=== PATIENT | female | born 1995 | race Caucasian/White ===

== ENCOUNTER 2018-03-30 20:23 | Emergency (ER) | payer OTHER, SELFPAY ==
[2018-03-30 20:48] VITALS: BP 129/89; PULSE 100; RESP 16; TEMP 36.7; O2SAT 99
--- NOTE | 2018-03-30 20:57 | DI.RAD_ITS ---
SYMPTOMS/DIAGNOSIS: FALL RIGHT ANKLE: No fracture or ankle mortise widening is seen. IMPRESSION: Negative right ankle.
--- NOTE | 2018-03-30 21:35 | W.ED.GENAD ---
Discharge Plan Disposition Patient Disposition: HOME Condition: Stable Discharge Details Chief Complaint: Orthopedic Clinical Impression: Right ankle sprain Primary Care Provider: Raghavendra Patton ED Provider: Tejas Yusuf Home Meds and New Rx's Prescriptions: No Action amoxicillin 500 mg capsule 500 mg PO BID Qty: 20 RF: 0 sucralfate [Carafate] 0.1 GM/ML suspension 1 gm PO AC & HS Qty: 500 RF: 0 famotidine 40 MG tablet 40 mg PO BID Qty: 30 RF: 0 Discharge Instructions Instructions: Ankle Sprain (ED), RICE Therapy (ED) Additional Instructions: You may continue to use kaod-jqa-hpjddfk acetaminophen or Motrin as needed for pain control. Please wear the provided brace over the next 2-4 weeks and over the next 2-3 days you may use crutches as needed but advance activity as tolerated by pain and discomfort. If not improving over the next 2 weeks please follow-up with orthopedist for reassessment Stand Alone Forms: Work Release Referrals: Curtis Fernandez MD [ [facility] STAFF PHYSICIAN] - Jorje Jimenez MD [ [facility] STAFF PHYSICIAN] - Wilver Hernandez MD [ [facility] STAFF PHYSICIAN] - Discharge Data Discharge Date/Time-TO BE ENTERED AT DEPARTURE: 03/30/18 22:30 Medical Decision Making Patient presenting the emergency department for chief complaint of slip and fall with right ankle pain. Patient states this happened approximately 30 minutes prior to arrival and while she was at work. Physical exam shows lateral malleolar tenderness that is slight with patient stating difficulty bearing weight. Due to this patient was ordered x-rays to rule out acute fracture but I have high suspicion of sprain. Pending results patient given 600 mg ibuprofen Review of radiological imaging shows no acute fracture or dislocation. Patient placed in lace up ankle splint and encouraged to use crutches over the next 2-3 days and then advance activity as tolerated. Patient to follow-up with orthopedist if not improving over next couple weeks. HPI General Mode of arrival: wheelchair. Date/Time Provider Initiated Documentation: 03/30/18 20:55. Limitations to Documentation: no limitations. Information obtained by: patient and RN notes reviewed. History of Present Illness 22 year old F presents to the emergency department with the chief complaint of Right ankle injury, described as moderate, with intensity rated at 8. Quality is described as sharp, and is localized to the right and lower extremity. Patient started experiencing this minute(s) (30) and it has been constant. No relieving factors improve symptom(s), Movement worsens symptoms . Patient notes no other symptoms.. Patient did receive the following treatments prior to arrival, none Related Data Home Medications Medication Instructions Recorded Confirmed famotidine 40 mg PO BID #30 tab 07/07/17 sucralfate [Carafate Suspension] 1 gm PO AC & HS #500 ml 07/07/17 amoxicillin 500 mg capsule 500 mg PO BID #20 cap 03/01/18 03/01/18 Previous Rx's Medication Instructions Recorded famotidine 40 mg PO BID #30 tab 07/07/17 sucralfate [Carafate Suspension] 1 gm PO AC & HS #500 ml 07/07/17 amoxicillin 500 mg capsule 500 mg PO BID #20 cap 03/01/18 Allergies Allergy/AdvReac Type Severity Reaction Status Date / Time azithromycin Allergy Mild rash Unverified 07/07/17 21:54 General Stated Complaint: Orthopedic JORGE: 4 Review of Systems Constitutional Denies frequent falls and Denies headache(s) ENT Denies headache(s) Cardiovascular Denies syncope Musculoskeletal Reports as per HPI, Denies numbness and Denies tingling Neurologic Denies confusion, Denies syncope, Denies frequent falls, Denies headache(s), Denies numbness and Denies tingling Psychiatric Denies confusion [facility] Family History Mother No problems noted. Father No problems noted. Social History Smoking/Tobacco Use Status: Current every day Exam Const General: cooperative, healthy appearing and no acute distress Orientation: alert, awake and oriented x3 Resp Effort & Inspection: normal respiratory effort and able to speak in complete sentences Cardio Rate: regular rate Rhythm: regular rhythm Extrem General: normal exam except as noted Right lower extremity: knee Details: normal to inspection and normal ROM; no tenderness and no swelling, ankle Details: tenderness Location: of the lateral malleolus, swelling Details: laterally and abnormal ROM Details: pain with passive ROM Details: with plantar flexion and with inversion; no ecchymosis and no crepitus and foot Details: normal capillary refill, normal to inspection and vascular exam Details: dorsalis pedis pulse present and posterior tibial pulse present; no tenderness Course Vital Signs Temperature 36.7 C 03/30/18 20:48 Pulse 100 H 03/30/18 20:48 Respiratory Rate 16 03/30/18 20:48 Blood Pressure 129/89 03/30/18 20:48 Pulse Oximetry 99 03/30/18 20:48 Temperature 36.7 C 03/30/18 20:48 Temperature Source Temporal Artery Scan 03/30/18 20:48 Pulse 100 H 03/30/18 20:48 Respiratory Rate 16 03/30/18 20:48 Respiratory Effort 03/30/18 20:48 Blood Pressure 129/89 03/30/18 20:48 Pulse Oximetry 99 03/30/18 20:48 Oxygen Delivery Method Room Air 03/30/18 20:48 Oxygen Flow Rate 0 03/30/18 20:48 Pain Level 10 03/30/18 20:56 Lab/Test Results Lab/Test Results: POC- Test(urine) Negative
[2018-03-30] MEDS: Ibuprofen 200 MG TAB 600 MG PO (21:36)
--- NOTE | 2018-03-30 22:57 | DI.VRAD_ITS ---
EXAM: XR Right Ankle Complete, 3 or more Views EXAM DATE/TIME: 03/30/2018 8:58 PM CLINICAL HISTORY: 22 years old, female; Pain; Ankle; Right; Patient HX: Pain r ankle TECHNIQUE: XR Right ankle 3 or more views. COMPARISON: No relevant prior studies available. FINDINGS: Bones/joints: Bone mineralization is age-appropriate. There is no evidence of fracture. No evidence of dislocation. The joint spaces are adequately preserved; no significant degenerative narrowing and no bony erosion seen. Soft tissues: No radiopaque foreign body present. There is soft tissue swelling present. IMPRESSION: 1. No acute osseous abnormality. 2. Soft tissue swelling only. Dictated and Authenticated by: Alex Crandall MD. Ordering:RENETTA Lazaro MD
--- NOTE | 2018-04-03 12:07 | NUR.NOTE ---
Faxed work release note to [phone]. Mabel Moses
== END 2018-03-30 22:30 | disposition home or self-care (01) ==
LOC: ER 22:36
PROVIDERS: Emergency Provider Nurse Practitioner Family; PCP Family Medicine
DX: S93.401A Sprain of unspecified ligament of right ankle, initial encounter (principal); W00.0XXA Fall on same level due to ice and snow, initial encounter
CPT/HCPCS: 29515; 81025; 99284; 73610; L1902

== ENCOUNTER 2020-05-04 22:19 | Outpatient (REF) | payer BC, SELFPAY ==
[2020-05-04 21:25] LABS: HCT 39.9 % (36.0-46.0); HGB 13.1 g/dL (11.2-15.7); MCH 27.5 pg (27.0-33.0); MCHC 32.8 % (32.0-36.0); MCV 83.8 fL (80-95); MPV 11.4 fL (8.0-11.0); Platelet Count 364 10^3/uL (130-400); RBC 4.76 10^6/uL (3.93-5.22); RDW 12.1 % (11.7-14.6); RDW-SD 36.7 fL; WBC 9.55 10^3/uL (4.4-10.8)
[2020-05-04 22:02] LABS: ALT 29 U/L (14-59); AST 13 U/L (15-37); Albumin 4.1 g/dL (3.4-5.0); Alkaline Phosphatase 67 U/L (46-116); Anion Gap 10.1 mmol/L (3-11); BUN 8 mg/dL (7-18); Bilirubin, Total 0.2 mg/dL (0.2-1.0); CO2 27.9 mmol/L (21.0-32.0); CREATININE 0.8 mg/dL (0.55-1.02); Calcium 9.3 mg/dL (8.5-10.1); Chloride 102 mmol/L (98-107); Glucose 83 mg/dL (74-106); Potassium 3.9 mmol/L (3.5-5.1); Sodium 140 mmol/L (136-145); TSH 2.04 uIU/mL (0.36-3.74)
== END 2020-05-04 22:20 | disposition home or self-care (01) ==
LOC: NCHCN 22:19
PROVIDERS: PCP Family Medicine; Visit Provider Emergency Medicine
DX: I10 Essential (primary) hypertension (principal); E03.9 Hypothyroidism, unspecified
CPT/HCPCS: 80053; 85027; 84443; 86140

== ENCOUNTER 2020-07-20 10:29 | Outpatient (REF) | payer BC, SELFPAY ==
--- NOTE | 2020-07-20 10:00 | PAPFT_PTH ---
PATIENT: Jana Grant LOC: [facility] U#:[id number] AGE/SX: 25/F ROOM: RE07/20/[address]: LISA Romero : 1995 BED: DIS: 07/20/2020 SPEC #: [id number] RECD: 07/20/20 17:43 STATUS: JARVIS PIERCE #: [id number] WALLACE: 07/20/20 10:[address]: Luna Beltrán DEPT: [facility] Cytology RECD BY: Kim Malone ENTERED: 07/20/20 17:44 SP TYPE: PAPFT OT DR: Raghavendra Patton MD Tissues: 1 - CX/ENDOCX FOR PAP SMEARS Procedures: PAP THIN PREP/UVM Screening Comments: [id number]
== END 2020-07-20 10:30 | disposition home or self-care (01) ==
LOC: LBN 10:29
PROVIDERS: PCP Family Medicine; Visit Provider Nurse Practitioner Family
DX: Z12.4 Encounter for screening for malignant neoplasm of cervix (principal); R87.613 High grade squamous intraepithelial lesion on cytologic smear of cervix (HGSIL)
CPT/HCPCS: 88142

== ENCOUNTER 2020-07-29 22:02 | Outpatient (REF) | payer BC, SELFPAY ==
[2020-07-31 11:03] LABS: COVID-19 RT-PCR UVMMC Result Negative (Negative)
== END 2020-07-29 22:03 | disposition home or self-care (01) ==
LOC: LBN 22:02
PROVIDERS: PCP Family Medicine; Visit Provider Physician Assistant
DX: J02.9 Acute pharyngitis, unspecified (principal); Z20.822 Contact with and (suspected) exposure to COVID-19
CPT/HCPCS: U0003; 87070

== ENCOUNTER 2020-08-08 16:37 | Emergency (ER) | payer BC, SELFPAY ==
[2020-08-08 16:40] VITALS: BP 159/91; PULSE 71; RESP 18; TEMP 36.3; O2SAT 100
--- NOTE | 2020-08-08 16:59 | ED.GENADUL_ITS ---
Discharge Plan Disposition Patient Disposition: HOME Condition: Stable Discharge Details Clinical Impression: Dental infection Primary Care Provider: Raghavendra Patton ED Provider: Nikunj Angulo Home Meds and New Rx's Prescriptions: New amoxicillin 400 mg/5 mL suspension for reconstitution 875 mg PO BID 10 Days Qty: 218.75 RF: 0 Continued ibuprofen [IBU-200] 200 mg tablet 600 mg PO TID PRNRF: 0 acetaminophen 500 mg capsule 1,000 mg PO QID PRN (Reason: pain) Qty: 100 RF: 0 Discharge Instructions Instructions: Dental Abscess (ED) Additional Instructions: Amoxicillin as directed. Jlnl-hfj-iuaxmtf Tylenol and/or Motrin as directed for discomfort. Cool and/or warm compresses every 2 hours for 20 minutes. Please watch for new or worsening symptoms and return to the ER for any concerns. Please follow-up with your dentist as already scheduled on August 31. Medical Decision Making 25-year-old female reports right upper dental pain began on Sunday. She reports multiple similar dental infections. She is taking encp-eky-njwvtck Tylenol and Motrin with moderate relief. Scheduled to see her dentist on August 31. Requesti ng antibiotics now in a liquid form. Clinically she appears well, nontoxic. No signs of trismus, airway is patent. Given her dental discomfort and overall dentition I believe initiating antibiotic therapy is reasonable. She will max out her vnaa-vlo-pelweru Tylenol and/or Motrin for discomfort. Standard discharge and return precautions given. Patient comfortable with this plan and has no additional questions or concerns. We did discuss her hypertension here in the ER. Patient states that she has made multiple lifestyle changes and is no longer on any medications. Admits that she becomes anxious from come to the hospital and typically her blood pressure does elevate. She is aware of her elevated reading and will continue to monitor at home, if continues to stay high she will talk with her primary care provider. Discharge blood pressure was 129/73. Medical Records Medical records reviewed: Yes I reviewed the patient's medical records. HPI General Mode of arrival: ambulatory . Date/Time Provider Initiated Documentation: 08/08/20 16:46 . Limitations to Documentation: no limitations . Information obtained by: patient . HPI Narrative: This is a 25-year-old female who reports history of anxiety, hypertension, presenting for right upper dental pain that began on Sunday. She states that the pain is adequately controlled with Tylenol and Motrin but is concerned that she needs antibiotics, scheduled for dental procedure on August 31. Patient states that she recently made multiple lifestyle changes and is no longer on any hypertensive medications. She is not a current smoker. Reports right upper dental pain, mild in nature, no facial swelling, foul taste in her mouth, facial pain, fever, difficulty swallowing or speaking. No additional questions or concerns. Related Data Home Medications Medication Instructions Recorded Confirmed acetaminophen 500 mg capsule 1,000 mg PO QID PRN #100 cap 04/12/18 07/07/20 ibuprofen 200 mg tablet 600 mg PO TID PRN tab 04/12/18 08/08/20 amoxicillin 875 mg PO BID 10 Days #218.75 ml 08/08/20 Previous Rx's Medication Instructions Recorded acetaminophen 500 mg capsule 1,000 mg PO QID PRN #100 cap 04/12/18 amoxicillin 875 mg PO BID 10 Days #218.75 ml 08/08/20 Allergies Allergy/AdvReac Type Severity Reaction Status Date / Time azithromycin Allergy Mild rash Verified 08/08/20 16:47 General Stated Complaint: DentalOral JORGE: 4 Review of Systems Constitutional Constitutional: Denies fever(s) and Denies headache(s) ENT Ears, Nose, Mouth, and Throat: Denies otalgia, Denies headache(s), Reports mouth pain, Denies neck pain and Denies sore throat Musculoskeletal Musculoskeletal: Denies neck pain Integumentary/Breasts Skin/Breast: Denies erythema and Denies rash Neurologic Neurologic: Denies headache(s) [facility] Medical History Contraception, generic surveillance (06/14/15) Hypertension Irregular menses (08/20/14) Right foot injury Smoker (05/04/17) 1/2 ppd Family History Mother Hypertension Maternal Grandmother Diabetes Breast cancer Social History Smoking/Tobacco Use Status: Former Tobacco Use Smoking risk assessment performed?: Yes Alcohol Intake: never Drug use: Never Substance use type: does not use Caregiver/Support person: No Household members: significant other and children Housing: apartment Communication Needs: None Do you need help understanding health information?: Never Pets and animals: Yes Pets and animals: cat(s) Sexually active: Yes Do you think of yourself as: straight/heterosexual Current gender identity: female What is your relationship status?: living with partner How often do you talk on the phone with friends or family?: three or more times per week How often do you get together with friends or relatives?: once per week Do you belong to any clubs or organized social groups?: no Panel score (0-1 are the most socially isolated patients): 2 What type of physical activity do you participate in: walking Duration: 30-45 minutes/day Frequency: daily Yoli/Sikhism: No preference Special yoli needs: No Seatbelt use: always Drive intox or ride w/intox 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 Point tenderness to tooth #2. No localized swelling, erythema, pointing abscess. No trismus. Airway patent. Throat: posterior oropharynx normal Eyes General: appearance normal, both eyes and all related structures Conjunctivae: conjunctivae normal Neck Neck: normal visual inspection, full ROM, no lymphadenopathy, no meningeal signs, trachea midline, supple and nontender Resp Effort & Inspection: normal respiratory effort and able to speak in complete sentences Skin General skin exam: no rashes or lesions noted Neuro General: patient alert, patient awake, moves all extremities and no focal motor deficits Sensory Exam: no sensory deficits noted Psych Appearance: grossly normal Mental Status: mental status grossly normal Course Vital Signs Vital signs: Vital Signs Temperature 36.3 C L 08/08/20 16:40 Pulse 71 08/08/20 16:40 Respiratory Rate 18 08/08/20 16:40 Blood Pressure 159/91 H 08/08/20 16:40 Pulse Oximetry 100 08/08/20 16:40 Temperature 36.3 C L 08/08/20 16:40 Temperature Source Skin 08/08/20 16:40 Pulse 71 08/08/20 16:40 Respiratory Rate 18 08/08/20 16:40 Respiratory Effort Non-Labored 08/08/20 16:45 Blood Pressure 159/91 H 08/08/20 16:40 Blood Pressure Position Sitting 08/08/20 16:40 Pulse Oximetry 100 08/08/20 16:40 Oxygen Delivery Method Room Air 08/08/20 16:40 Oxygen Flow Rate 0 08/08/20 16:40 Pain Level 4 08/08/20 16:48
[2020-08-08] MEDS: Amoxicillin 400 MG/5 ML 100ML BTL 875 MG PO (17:15)
[2020-08-08 17:18] VITALS: BP 129/73; PULSE 80; RESP 16; TEMP 36.3; O2SAT 98
== END 2020-08-08 17:20 | disposition home or self-care (01) ==
PROVIDERS: Emergency Provider Physician Assistant; PCP Family Medicine
DX: R68.84 Jaw pain (principal); K04.7 Periapical abscess without sinus
CPT/HCPCS: 99283

== ENCOUNTER 2020-09-02 10:06 | Outpatient (REF) | payer BC, SELFPAY ==
--- NOTE | 2020-09-02 09:55 | ENDO_PTH ---
PATIENT: Jana Grant LOC: [facility] U#:[id number] AGE/SX: 25/F ROOM: RE09/02/[address]: Annalisa Hamilton DO : 1995 BED: DIS: 09/02/2020 SPEC #: [id number] RECD: 09/02/20 12:42 STATUS: JARVIS RE #: [id number] WALLACE: 09/02/20 09:[address]: Annalisa Hamilton DEPT: Surgical Specimen RECD BY: Kim Malone ENTERED: 09/02/20 12:43 SP TYPE: Endo OTHR DR: Juan Pablo Loo, LATISHA Tissues: 1 - ENDOCERVICAL BX/CURRETTE 2 - CERVICAL BIOPSY Procedures: GROSS AND MICRO LEVEL 4 Comments: [id number]
== END 2020-09-02 10:07 | disposition home or self-care (01) ==
LOC: LBN 10:06
PROVIDERS: PCP Nurse Practitioner Family; Visit Provider Obstetrics & Gynecology
DX: R87.612 Low grade squamous intraepithelial lesion on cytologic smear of cervix (LGSIL) (principal); N87.9 Dysplasia of cervix uteri, unspecified
CPT/HCPCS: 88305

== ENCOUNTER 2021-01-13 19:35 | Outpatient (REF) | payer BC, SELFPAY | END 2021-01-13 19:36 | disposition home or self-care (01) | LOC: LBN 19:35 | PROVIDERS: PCP Nurse Practitioner Family; Visit Provider Physician Assistant | DX: J02.9 Acute pharyngitis, unspecified (principal) | CPT/HCPCS: 87070 ==

== ENCOUNTER 2021-07-12 03:21 | Outpatient (CLI) | payer BC, SELFPAY ==
[2021-07-12 11:14] LABS: HCT 39.5 % (36.0-46.0); HGB 13.2 g/dL (11.2-15.7); MCH 27.8 pg (27.0-33.0); MCHC 33.4 % (32.0-36.0); MCV 83.3 fL (80-95); MPV 10.4 fL (8.0-11.0); Platelet Count 354 10^3/uL (130-400); RBC 4.74 10^6/uL (3.93-5.22); RDW 12.3 % (11.7-14.6); RDW-SD 37.6 fL; WBC 8.13 10^3/uL (4.4-10.8)
[2021-07-12 13:08] LABS: Source Nasal/Nares
[2021-07-12 21:04] LABS: COVID-19 PCR Negative (Negative)
== END 2021-07-12 03:22 | disposition home or self-care (01) ==
LOC: LBO 03:21
PROVIDERS: PCP Nurse Practitioner Family; Visit Provider Obstetrics & Gynecology
DX: R87.613 High grade squamous intraepithelial lesion on cytologic smear of cervix (HGSIL) (principal); Z20.822 Contact with and (suspected) exposure to COVID-19; Z01.818 Encounter for other preprocedural examination; Z01.812 Encounter for preprocedural laboratory examination
CPT/HCPCS: 36415; 80061; 85027; 86850; 86900; 86901; 87635; 83036; 85014; 85018

== ENCOUNTER 2021-07-12 15:46 | Outpatient (REF) | payer BC, SELFPAY | END 2021-07-12 15:47 | disposition home or self-care (01) | LOC: LBN 15:46 | PROVIDERS: PCP Nurse Practitioner Family; Visit Provider Obstetrics & Gynecology ==

== ENCOUNTER 2021-07-13 08:38 | Day surgery (SDC) | payer BC, SELFPAY ==
[2021-07-13 09:04] VITALS: BP 157/86; PULSE 78; RESP 16; TEMP 36.3; O2SAT 98
[2021-07-13] MEDS: Lactated Ringers 1,000 ML 125 ML IV (09:43)
--- NOTE | 2021-07-13 09:58 | W.ANESPRE ---
General Info Date of Service Date Performed: 07/13/21 Height: 5 ft 5 in Weight: 101 kg Body Mass Index (BMI): 37.0 Surgical Procedure: Operation Date: 07/13/21 11:10 Proposed Procedure Side Surgeon p Baldomerop Cone Biopsy Annalisa Hamilton DO Meds Allergies and Home Medications Allergies Allergy/AdvReac Type Severity Reaction Status Date / Time acetaminophen Allergy Intermediate Other (See Unverified 07/13/21 09:00 Comment) azithromycin Allergy Mild rash Verified 07/13/21 09:00 Home Medication Medication Instructions Recorded naproxen 500 mg tablet 500 mg PO BID PRN #60 tab 05/30/21 trazodone 50 mg tablet 50 mg PO QHS PRN #90 tab 07/11/21 Current Visit Medications: Current Medications Generic Name Dose Route Start Last Admin Trade Name Freq PRN Reason Stop Dose Admin Ringer's Solution 1,000 mls @ 125 mls/hr 07/13/21 06:00 07/13/21 09:43 IV 07/30/21 23:59 125 mls/hr INFUSION ALLY Administration IV Miscellaneous Supplies 1 each 07/13/21 06:00 Iv Access IV 07/30/21 23:59 DIRECTED ALLY Sodium Chloride 0 ml 07/13/21 06:00 Normal Saline Flush 10 Ml Syr IV 07/30/21 23:59 PRN PRN Sodium Chloride 0 ml 07/13/21 06:00 Normal Saline 10 Ml Vial IJ 07/30/21 23:59 DIRECTED PRN Sterile Water 0 ml 07/13/21 06:00 Water,Injection,Sterile 10 Ml Vial IJ 07/30/21 23:59 DIRECTED PRN PFSH Active Problems Active Problems: Problem Status Onset Code Anxiety F41.9 HSIL (high grade squamous intraepithelial lesion) on Pap smear of cervix R87.613 Dizziness R42 Chronic headache R51.9, G89.29 Insomnia G47.00 Medical History Medical History Contraception, generic surveillance (06/14/15) COVID-19 05/16/21 Smoker (05/04/17) 1/2 ppd Medical History Comments:: actively menstrating; reports 3 broken teeth, 2 top, 1 bottom Surgical History Surgical History (Updated 07/13/21 @ 09:00 by Colette Whatley) Hx of wisdom tooth extraction Tobacco Smoking/Tobacco Use Status: Former Tobacco Use Passive smoking exposure: Yes Second hand exposure: Yes Alcohol Alcohol Intake: never Substance Use Substance use: Never Substance use type: does not use Vital Signs and Lab Results Vital Signs Most Recent Vital Signs in EMR: Most Recent Vital Signs Temp Pulse Resp BP Pulse Ox 36.3 C L 78 16 157/86 H 98 07/13/21 09:04 07/13/21 09:04 07/13/21 09:04 07/13/21 09:04 07/13/21 09:04 Point of Care Results Point of Care Results: POC- Test(urine) Negative 07/13/21 09:35 Finger Stick Blood Glucose 90 07/13/21 09:38 Lab Results Blood Type / Crossmatch: Patient ABO/Rh O Positive 07/12/21 Antibody Screen NEGATIVE 07/12/21 Complete Blood Count: White Blood Count 8.13 10^3/uL (4.4-10.8) 07/12/21 11:05 07/12/21 Red Blood Count 4.74 10^6/uL (3.93-5.22) 07/12/21 11:05 07/12/21 Hemoglobin 13.2 g/dL (11.2-15.7) 07/12/21 11:05 07/12/21 Hematocrit 39.5 % (36.0-46.0) 07/12/21 11:05 07/12/21 Platelet Count 354 10^3/uL (130-400) 07/12/21 11:05 07/12/21 Complete Metabolic Panel: No Data to Display Liver Function Panel: No Data to Display Coagulation Panel: No Data to Display Cardiac Panel: No Data to Display Arterial Blood Gas: No Data to Display Venous Blood Gas: No Data to Display Pancreas Panel: No Data to Display Thyroid Panel: No Data to Display Infectious Disease: Coronavirus (COVID-19)(PCR) Negative (Negative) 07/12/21 10:45 07/12/21 Coronavirus 2019 Source Nasal/Nares 07/12/21 10:45 07/12/21 Blood Cultures: No Data to Display Toxicology Panel: No Data to Display Panel: No Data to Display Anesthesia Assessment and Plan Anesthesia History Personal History: No History of Anesthesia Complications Family History: No Family History of Anesthesia Complications Exercise Tolerance Exercise Tolerance: Metabolic Equivalents>4 Pertinent Negatives Pertinent Negatives: No Symptoms of GERD, No Major Cardiovascular Symptoms or Complaints, No Major Pulmonary Symptoms or Complaints and No History of CVA/TIA Cardiac & Pulmonary Exam Cardiac Exam: Normal S1/S2 Heart Sounds Pulmonary Exam: Clear Bilateral Breath Sounds Implantable Cardiac Device Does patient have a Pacemaker or an ICD?: No Airway Exam Known Difficult Airway: No Mallampati Class: 3 Mouth Opening: Normal (> 3cm) Thyromental Distance: Greater than 3 cm Neck Range of Motion: Full ROM Neck Circumference: Normal Teeth Condition: Generalized Poor Dentition Tooth Numberin. Broken 2. Broken 3. Broken ASA Classification ASA Score: ASA 2 Emergency Case?: No NPO Status NPO Status: NPO Clears >2 hours, Solids >8 hours Status Status: Not Relevant due to Medical History Anesthesia Plan Resuscitation Status: Full Code Anesthesia Technique: General Anesthesia Airway Planned: Natural Airway Monitors Used: Standard Monitors
[2021-07-13 10:00] VITALS: BMI 37.0
--- NOTE | 2021-07-13 12:12 | CER_PTH ---
PATIENT: Jana Grant LOC: [facility] U#:[id number] AGE/SX: 26/F ROOM: RE07/13/[address]: Annalisa Hamilton DO : 1995 BED: DIS: 07/13/2021 SPEC #: [id number] RECD: 07/13/21 13:01 STATUS: JARVIS RE #: [id number] WALLACE: 07/13/21 12:[address]: Annalisa Hamilton DEPT: Surgical Specimen RECD BY: Kim Malone ENTERED: 07/13/21 13:01 SP TYPE: CER OTHR DR: Juan Pablo Loo, LATISHA Tissues: 1 - CERVICAL CONE BX Procedures: GROSS AND MICRO LEVEL 5 Comments: [id number]
[2021-07-13 12:22] VITALS: BP 130/88; PULSE 94; RESP 16; TEMP 36.1; O2SAT 95
--- NOTE | 2021-07-13 12:25 | W.PM.OP ---
Date of service: 07/13/21 Time of Service: 12:25 Operative Note Operative Note DATE OF PROCEDURE: 07/13/21 PRE-OP DIAGNOSIS: Cervical dysplasia PROCEDURE: Loop electrocautery excisional procedure SURGEON: Annalisa Hamilton ANESTHESIA TYPE: General:No Airway Refer to Anesthesia Record ESTIMATED BLOOD LOSS: 5 PATHOLOGY: other (Cervical conization) COMPLICATIONS: None Patient was transported to: same day Patient's condition: stable Indications: History of abnormal Pap smear with no lesion on biopsy, warrants cervical conization Findings: Normal-appearing cervix with small lesion from the 11:00 to 1 o'clock position in the anterior lip of the cervix Procedure Description: After full informed consent was obtained, patient was taken the operating suite with an IV running. She was placed in the dorsal supine position and adequate anesthesia established. She was then placed in the modified dorsal lithotomy position and prepped intravaginally. Speculum was inserted for visualization of the entire cervix. A medium, 10 mm loop electrode was used to excise a cone-shaped portion of the cervix. This was sent to pathology. Base of the conization was cauterized with a ball tip cautery and Monsel solution placed. Excellent hemostasis was noted. Patient was returned to the supine position, and awoke from anesthesia with ease. Specimen: None cervical conization Fluids: Crystalloid per anesthesia Complications: None apparent EBL: 5 mL
[2021-07-13 12:55] VITALS: BP 130/84; PULSE 65; RESP 16; TEMP 36.5; O2SAT 98
--- NOTE | 2021-07-13 14:22 | W.ANESPOSTOP ---
Postoperative Evaluation Date, Time and Location Date Performed: 07/13/21 Time Performed: : Patient Location: Day Surgery Unit Vital Signs Most Recent Imported Vital Signs: Most Recent Vital Signs Temp Pulse Resp BP Pulse Ox 36.5 C 65 16 130/84 98 07/13/21 12:55 07/13/21 12:55 07/13/21 12:55 07/13/21 12:55 07/13/21 12:55 Pain Score Most Recent Pain Score: Most Recent Pain Score Pain Level 6 07/13/21 12:55 Assessment Mental Status: Awake (Alert & Oriented to Patient Baseline) Airway and Respiratory Function: Patent airway with normal (patient baseline) respiratory exam Cardiovascular Function: Hemodynamically Stable Hydration Status: Adequately Hydrated Nausea & Vomiting: No Nausea or Vomiting Pain: Pt. Denies Any Pain Peripheral Nerve Block: Patient did not receive a nerve block Postoperative Comments:: Seen earlier today in DSU postoperatively. Patient was doing fine and appropriate for discharge
== END 2021-07-13 13:50 | disposition home or self-care (01) ==
PROVIDERS: PCP Nurse Practitioner Family; Visit Provider Obstetrics & Gynecology
PROC: 0UBC7ZZ Excision of Cervix, Via Natural or Artificial Opening (ICD-10-PCS; CPT 57522; principal; 2021-07-13 11:00)
DX: N87.9 Dysplasia of cervix uteri, unspecified (principal); F41.9 Anxiety disorder, unspecified; G47.00 Insomnia, unspecified; F17.210 Nicotine dependence, cigarettes, uncomplicated; R87.89 Other abnormal findings in specimens from female genital organs
CPT/HCPCS: 57522; 88307; J1885; J2001; J2704; J3010

== ENCOUNTER 2021-07-21 02:26 | Outpatient (CLI) | payer BC, SELFPAY ==
[2021-07-21 08:21] LABS: HCT 41.1 % (36.0-46.0); HGB 13.4 g/dL (11.2-15.7)
[2021-07-21 08:39] LABS: Hemoglobin A1C 5.3 % (<5.7)
[2021-07-21 09:02] LABS: Calculated LDL 118 mg/dL (<100); Cholesterol 207 mg/dL (<200); HDL Cholesterol 63 mg/dL (40-60); Triglyceride 134 mg/dL (<150)
== END 2021-07-21 02:27 | disposition home or self-care (01) ==
LOC: LBO 02:26
PROVIDERS: Obstetrics & Gynecology; PCP Nurse Practitioner Family; Visit Provider Nurse Practitioner Family
DX: Z13.220 Encounter for screening for lipoid disorders (principal); Z13.1 Encounter for screening for diabetes mellitus; Z01.818 Encounter for other preprocedural examination
CPT/HCPCS: 36415; 80061; 83036; 85014; 85018

== ENCOUNTER 2021-08-04 03:46 | Outpatient (CLI) | payer BC, SELFPAY | END 2021-08-04 03:47 | disposition home or self-care (01) | LOC: LBO 03:46 | PROVIDERS: PCP Nurse Practitioner Family; Visit Provider Nurse Practitioner Family ==

== ENCOUNTER 2021-08-09 02:10 | Outpatient (CLI) | payer BC, SELFPAY ==
[2021-08-09 12:39] LABS: CREATININE 0.7 mg/dL (0.55-1.02)
== END 2021-08-09 02:11 | disposition home or self-care (01) ==
LOC: LOS 02:10
PROVIDERS: PCP Nurse Practitioner Family; Visit Provider Nurse Practitioner Family
DX: Z79.1 Long term (current) use of non-steroidal anti-inflammatories (NSAID) (principal)
CPT/HCPCS: 36415; 82565

== ENCOUNTER 2021-11-28 11:56 | Outpatient (REF) | payer OTHER, SELFPAY ==
--- NOTE | 2021-11-28 09:35 | PAPFT_PTH ---
PATIENT: Jana Grant LOC: [facility] U#:[id number] AGE/SX: 26/F ROOM: RE11/28/[address]: Annalisa Hamilton DO : 1995 BED: DIS: 11/28/2021 SPEC #: [id number] RECD: 11/28/21 12:54 STATUS: JARVIS REQ #: [id number] WALLACE: 11/28/21 09:[address]: Annalisa Hamilton DEPT: [facility] Cytology RECD BY: Kim Malone ENTERED: 11/28/21 12:54 SP TYPE: PAPFT LIBRADO DR: Juan Pablo Loo NP Tissues: 1 - CX/ENDOCX FOR PAP SMEARS Procedures: PAP THIN PREP/UVM Screening Comments: [id number]
== END 2021-11-28 11:57 | disposition home or self-care (01) ==
LOC: LBN 11:56
PROVIDERS: PCP Nurse Practitioner Family; Visit Provider Obstetrics & Gynecology
DX: Z12.4 Encounter for screening for malignant neoplasm of cervix (principal)
CPT/HCPCS: 88142

== ENCOUNTER 2022-01-31 11:57 | Emergency (ER) | payer OTHER, SELFPAY ==
--- NOTE | 2022-01-31 11:45 | RT.EKG_ITS ---
APPROVED REPORT Exam: Resting ECG Reason for Exam: dizzy Patient Location: E HR:82 bpm ECG Measurements Heart Rate 82 AXIS VA 167 P -6 QRSd 85 QRS 2 QT 363 T 59 QTc 423 Conclusion Sinus rhythm...normal P axis, V-rate 60- 99
[2022-01-31 11:59] VITALS: BP 153/88; PULSE 91; RESP 17; TEMP 36.3; O2SAT 100
[2022-01-31 12:09] VITALS: RESP 17
[2022-01-31 12:21] LABS: Bilirubin Negative (Negative); Blood Negative (Negative); Clarity Sl Cloudy (Clear); Glucose Negative (Negative); Ketones Negative (Negative); Leukocyte Esterase Negative (Negative); Nitrite Negative (Negative); Specific Gravity >= 1.030 (1.005-1.025); Urobilinogen 0.2 EU/dL (Up TO 0.2)
--- NOTE | 2022-01-31 12:21 | ED.GENADUL_ITS ---
Discharge Plan Disposition Patient Disposition: HOME Condition: Stable Discharge Details Clinical Impression: Light-headedness Primary Care Provider: Juan Pablo Loo ED Provider: Myron Rice Home Meds and New Rx's Prescriptions: Continued progesterone micronized [Prometrium] 100 mg capsule 100 mg PO QAM 360 Days Qty: 90 3RF triamcinolone acetonide 0.1 % ointment 1 applic topical BID Qty: 15 0RF nystatin 100,000 unit/gram ointment 1 applic topical TID Qty: 15 0RF lamotrigine 25 mg tablet 25 mg PO .COMPLEX Qty: 63 0RF Rx Instructions: 25 mg orally Take 1 tab, qAM x 3 weeks, then Take 2 tabs, qAM x 3 weeks. naproxen 500 mg tablet 500 mg PO BID PRN (Reason: pain) Qty: 180 3RF Discharge Instructions Instructions: Lightheadedness (ED) Additional Instructions: your blood work did not show concerning findings at this time follow up with your primary care provider within 1 week especially if symptoms continue if you feel more ill, have difficulty breathing or chest pain return to the emergency department Medical Decision Making 26 yo female who denies chronic medical problems comes in with cc of feeling lightheaded and like she was going to pass out at work. She denies loc and denies having any chest pain or dyspnea, no recent fevers or chills. She states she was sitting at her desk stood up then felt lightheaded and felt like she might pass out. She states she feels welll now, did not notice any symptoms this morning and ate oatmeal for breakfast. She has been having issues of pain in her right toe, on exam has no swelling, erythema or other deformity of the toe, full rom and sensation and normal cap refill, no warmth. She is caox4 speaking clearly, clear lungs, soft nontender abdomen, no murmurs. Suspect orthostasis, will evaluate for anemia, electrolyte abnormalities and though she had no chest pain will obtain troponin. No evidence of dvt on exam, no calf tenderness, no tachycardia or hypoxia so doubt pe. Offered xray of the toe though suspicion of fracture/dislocation low which she declines, has no findings on exam to suggest infectious vs inflammatory process such as gout pt stable and asymptomatic now, still normal sinus and stable vitals, She is stable for d/c, suspect orthostasis. She was advised to f/u with pcp, return precautions given Differential Diagnosis Differential Diagnosis: orthostasis, dehydration, anemia ECG Data Attestation: I personally reviewed and interpreted this ECG (s) as follows: Prior ECG tracings: not available for review Interpretation: sinus rhythm, rate of 82, no acute ischemic findings HPI General Mode of arrival: EMS . Date/Time Provider Initiated Documentation: 01/31/22 12:06 . Limitations to Documentation: no limitations . Information obtained by: patient . History of Present Illness 26 year old F presents to the emergency department with the chief complaint of lightheaded, described as moderate, Patient reports no radiation. Patient started exper iencing this hour(s) (1) and it has been now resolved. Rest improves symptom(s), Movement worsens symptoms . Patient notes no other symptoms.. Patient did receive the following treatments prior to arrival, none Related Data Home Medications Medication Instructions Recorded Confirmed lamotrigine 25 mg tablet 25 mg PO .COMPLEX #63 tabs 11/24/21 01/31/22 nystatin 100,000 unit/gram topical 1 applic topical TID #15 grams 11/28/21 01/31/22 ointment progesterone micronized 100 mg 100 mg PO QAM 12 months #90 caps 11/28/21 01/31/22 capsule (Prometrium) triamcinolone acetonide 0.1 % 1 applic topical BID #15 grams 11/28/21 01/31/22 topical ointment naproxen 500 mg tablet 500 mg PO BID PRN pain #180 tabs 01/20/22 01/31/22 Previous Rx's Medication Instructions Recorded lamotrigine 25 mg tablet 25 mg PO .COMPLEX #63 tabs 11/24/21 nystatin 100,000 unit/gram topical 1 applic topical TID #15 grams 11/28/21 ointment progesterone micronized 100 mg 100 mg PO QAM 12 months #90 caps 11/28/21 capsule (Prometrium) triamcinolone acetonide 0.1 % 1 applic topical BID #15 grams 11/28/21 topical ointment naproxen 500 mg tablet 500 mg PO BID PRN pain #180 tabs 01/20/22 Allergies Allergy/AdvReac Type Severity Reaction Status Date / Time acetaminophen Allergy Intermediate Other (See Verified 01/31/22 12:02 Comment) azithromycin Allergy Mild rash Verified 01/31/22 12:02 General Stated Complaint: Dizzy/Sync JORGE: 3 Review of Systems All systems reviewed & are unremarkable except as noted in HPI and below Constitutional Constitutional: Denies chills, Denies fever(s) and Denies weakness Cardiovascular Cardiovascular: Denies chest pain and Denies dyspnea Respiratory Respiratory: Denies cough and Denies dyspnea Gastrointestinal Gastrointestinal: Denies abdominal pain, Denies nausea and Denies vomiting Musculoskeletal Musculoskeletal: Denies joint swelling Neurologic Neurologic: Denies weakness PFSH All Active Problems (Updated 01/31/22 @ 14:16 by Myron Rice MD) Light-headedness (Acute) Right foot pain (Acute) Preseptal cellulitis of right eye (Acute) Well woman exam with routine gynecological exam (Acute) Periorbital edema of right eye (Acute) Unspecified mood [affective] disorder (Acute) Tobacco dependence due to cigarettes, in remission (Acute) Dysfunctional uterine bleeding (Acute) Anxiety (Chronic) HSIL (high grade squamous intraepithelial lesion) on Pap smear of cervix (Acute) Had Conization 07/22. Needs pap q 6 months x 2 years. Next 01/21 Dizziness (Acute) Chronic headache (Acute) Comes and goes Insomnia (Acute) Medical History Contraception, generic surveillance (06/14/15) COVID-19 05/16/21 Smoker (05/04/17) 1/2 ppd Surgical History Hx of wisdom tooth extraction Family History Mother Hypertension Maternal Grandmother Diabetes Breast cancer Social History Smoking/Tobacco Use Status: Former Tobacco Use tobacco type: cigarettes Quit Date: 03/30/20 Second Hand Exposure: Yes Smoking risk assessment performed?: Yes Alcohol Intake: never Drug use: Never Substance use type: does not use Caregiver/Support person: No Household members: spouse and children Housing: apartment Communication Needs: None Do you need help understanding health information?: Never Pets and animals: Yes Pets and animals: cat(s) Sexually active: Yes Do you think of yourself as: straight/heterosexual Current gender identity: female What is your relationship status?: How often do you talk on the phone with friends or family?: twice per week How often do you get together with friends or relatives?: once per week Do you belong to any clubs or organized social groups?: no Panel score (0-1 are the most socially isolated patients): 2 What type of physical activity do you participate in: walking Duration: 15-30 minutes/day Frequency: 5-6 times per week Yoli/Adventist: No preference Special yoli needs: No Seatbelt use: always Helmet use: Yes Helmet use: always Drive intox or ride w/intox driver's license reviewing officer: No Do you feel safe at home: Yes Do you feel safe in your relationship?: Yes Exam Const General: no acute distress Orientation: alert HENMT Head: normal to inspection Ears: external ears normal General nose exam: external nose normal Mouth: moist mucous membranes Eyes General: appearance normal, both eyes and all related structures Neck Neck: normal visual inspection Resp Effort & Inspection: normal respiratory effort and able to speak in complete sentences Cardio Rate: regular rate Skin General skin exam: no rashes or lesions noted Neuro General: patient alert and patient oriented x3 Extrem General: normal to inspection Psych Mental Status: mental status grossly normal Course Vital Signs Vital signs: Vital Signs Temperature 36.3 C L 01/31/22 11:59 Pulse 91 H 01/31/22 11:59 Respiratory Rate 17 01/31/22 11:59 Blood Pressure 153/88 H 01/31/22 11:59 Pulse Oximetry 100 01/31/22 11:59 Temperature 36.3 C L 01/31/22 11:59 Temperature Source Temporal Artery Scan 01/31/22 11:59 Pulse 91 H 01/31/22 11:59 Respiratory Rate 17 01/31/22 12:09 Respiratory Effort Non-Labored 01/31/22 12:09 Respiratory Depth Normal 01/31/22 12:09 Respiratory Pattern Normal 01/31/22 12:09 Blood Pressure 153/88 H 01/31/22 11:59 Blood Pressure Position Sitting 01/31/22 11:59 Pulse Oximetry 100 01/31/22 11:59 Oxygen Delivery Method Room Air 01/31/22 11:59 Oxygen Flow Rate 0 01/31/22 11:59 Pain Level 0 01/31/22 11:59 Lab/Test Results Lab/Test Results: POC- Test(urine) Negative
[2022-01-31 12:28] LABS: *AMPHETAMINES SCREEN URINE Negative (Negative); *BARBITURATES SCREEN URINE Negative (Negative); *BENZODIAZEPINES SCREEN URINE Negative (Negative); Cannabinoids THC Positive (Negative); Cocaine Screen,Urine Negative (Negative); METHADONE URINE SCREEN Negative (Negative); OPIATES URINE SCREEN Negative (Negative)
[2022-01-31 12:29] LABS: Tricyclic Antidepressants Negative (Negative)
[2022-01-31] MEDS: Normal Saline 1,000 ML 1000 ML IV (12:47)
[2022-01-31 12:49] LABS: Abs Immature Grans 0.03 10^3/uL (0.0-0.06); Absolute Basophil Count 0.04 10^3/uL (0.0-0.2); Absolute Eosinophil Count 0.12 10^3/uL (0.0-0.7); Absolute Lymphocyte Count 1.58 10^3/uL (1.2-3.4); Absolute Monocyte Count 0.52 10^3/uL (0.1-0.8); Absolute Neutrophil Count 4.71 10^3/uL (1.2-6.7); Basophils % 0.6; Eosinophils % 1.7; HCT 38.1 % (36.0-46.0); HGB 12.7 g/dL (11.2-15.7); Immature Grans % 0.4; Lymphocytes % 22.6; MCH 27.5 pg (27.0-33.0); MCHC 33.3 % (32.0-36.0); MCV 83 fL (80-95); MPV 10.6 fL (8.0-11.0); Monocytes % 7.4; Neutrophils % 67.3; Platelet Count 331 10^3/uL (130-400); RBC 4.61 10^6/uL (3.93-5.22); RDW 12.2 % (11.7-14.6); RDW-SD 37.2 fL
[2022-01-31 13:16] LABS: ALT 19 U/L (14-59); AST 16 U/L (15-37); Alkaline Phosphatase 70 U/L (46-116); Anion Gap 9.1 mmol/L (3-11); BUN 9 mg/dL (7-18); Bilirubin, Total 0.3 mg/dL (0.2-1.0); CO2 27.9 mmol/L (21.0-32.0); CREATININE 0.7 mg/dL (0.55-1.02); Calcium 9.3 mg/dL (8.5-10.1); Chloride 103 mmol/L (98-107); Estimated GFR 120.74 (mL/min/1.73m2); Glucose 98 mg/dL (74-106); Magnesium 1.8 mg/dL (1.8-2.4); Potassium 3.4 mmol/L (3.5-5.1); Sodium 140 mmol/L (136-145); Total Protein 8.6 g/dL (6.4-8.2); Troponin I < 50 ng/L (<or=60)
== END 2022-01-31 14:32 | disposition home or self-care (01) ==
PROVIDERS: Emergency Provider Emergency Medicine; PCP Nurse Practitioner Family
DX: R42 Dizziness and giddiness (principal); Z86.16 Personal history of COVID-19
CPT/HCPCS: 36415; 80053; 80307; 81025; 93005; 96360; 99284; 81003; 83735; 84484; 85025; 93010; 99282

== ENCOUNTER 2022-03-26 08:39 | Emergency (ER) | payer OTHER, SELFPAY ==
[2022-03-26 08:43] VITALS: BP 155/85; PULSE 89; RESP 18; TEMP 36.4; O2SAT 99
--- NOTE | 2022-03-26 09:11 | ED.GENADUL_ITS ---
Discharge Plan Disposition Patient Disposition: Home Condition: Stable Discharge Details Clinical Impression: Malaise, Nausea & vomiting Primary Care Provider: Juan Pablo Loo ED Provider: Kim Michel Home Meds and New Rx's Prescriptions: Continued multivitamin Tablet 1 tab PO DAILY sertraline 50 mg tablet 50 mg PO DAILY Qty: 90 0RF naproxen 500 mg tablet 500 mg PO BID PRN (Reason: pain) Qty: 180 3RF ondansetron HCl 4 mg tablet 4 mg PO Q8H PRN (Reason: nausea and vomiting) Qty: 14 0RF lorazepam 0.5 mg tablet 0.5 mg PO BID PRN (Reason: anxiety) Qty: 6 0RF Discharge Instructions Additional Instructions: Take your nausea medication as needed for nausea and vomiting Take your Naprosyn for fever or chills Follow-up with your doctor on Sunday I will call you if your thyroid is out of normal range The rest of your tests are negative for abnormality I would definitely make an appointment with your doctor for Sunday or Sunday of next week for reassessment and return earlier should you have new or worsening complaints Liquid diet as tolerated Referrals: Juan Pablo Loo, ASSISTANT COUNSEL [Primary Care Provider] - 1 day Discharge Data Discharge Date/Time-TO BE ENTERED AT DEPARTURE: 03/26/22 09:48 Medical Decision Making This 26-year-old female several recent visits emergency department presents with upper respiratory symptoms, intermittent lightheadedness and fatigue for approximately 1 week. Denies any chest pain or shortness of breath. States her biggest complaint is that she feels quite tired. She was seen by her PCP this week and given meclizine which she is unsure as to improvement in her symptoms associated with taking this medication She has a thyroid that is within normal limits Her rapid COVID and flu are negative Reviewed test results with patient Encouraged her to follow-up with her primary care physician in the outpatient setting, antiemetics for home Return precautions reviewed and patient expressed understanding Medical Records Medical records reviewed: Yes I reviewed the patient's medical records. Lab Data Lab results reviewed: Yes I reviewed the patient's lab results. HPI General Date/Time Provider Initiated Documentation: 03/26/22 08:41 . HPI Narrative: This 26-year-old female presents with subjective fever, chills, feeling tired, and lightheadedness for the past 4 days. She states she has been evaluated by her primary care physician for this. She denies any urinary symptoms. She denies known chance of but is sexually active with a partner. She was on an antibiotic at the beginning of March for report of dental infection. She denies any pain to her tooth. Also recently started on sertraline on Sunday but states her symptoms were present prior to starting this new medication. She feels depressed but states this is not new and denies any suicidal ideation. She does have a longstanding history of anxiety but states that she feels as though it is controlled. Related Data Home Medications Medication Instructions Recorded Confirmed naproxen 500 mg tablet 500 mg PO BID PRN pain #180 tabs 01/20/22 03/20/22 multivitamin 1 tab PO DAILY 03/01/22 03/20/22 sertraline 50 mg tablet 50 mg PO DAILY #90 tabs 03/20/22 03/20/22 lorazepam 0.5 mg tablet 0.5 mg PO BID PRN anxiety #6 tabs 03/23/22 ondansetron HCl 4 mg tablet 4 mg PO Q8H PRN nausea and 03/23/22 vomiting #14 tabs Previous Rx's Medication Instructions Recorded naproxen 500 mg tablet 500 mg PO BID PRN pain #180 tabs 01/20/22 sertraline 50 mg tablet 50 mg PO DAILY #90 tabs 03/20/22 lorazepam 0.5 mg tablet 0.5 mg PO BID PRN anxiety #6 tabs 03/23/22 ondansetron HCl 4 mg tablet 4 mg PO Q8H PRN nausea and 03/23/22 vomiting #14 tabs Allergies Allergy/AdvReac Type Severity Reaction Status Date / Time acetaminophen Allergy Intermediate Other (See Verified 03/20/22 11:44 Comment) azithromycin Allergy Mild rash Verified 03/20/22 11:44 General Stated Complaint: GenMedical JORGE: 3 Review of Systems All systems reviewed & are unremarkable except as noted in HPI and below PFSH All Active Problems (Updated 03/26/22 @ 09:44 by DEISI Paul) Malaise (Acute) Nausea & vomiting (Acute) Vertigo (Acute) Pulsatile tinnitus of right ear (Acute) Right foot pain (Acute) Preseptal cellulitis of right eye (Acute) Well woman exam with routine gynecological exam (Acute) Periorbital edema of right eye (Acute) Unspecified mood [affective] disorder (Acute) Tobacco dependence due to cigarettes, in remission (Acute) Dysfunctional uterine bleeding (Acute) Anxiety (Chronic) HSIL (high grade squamous intraepithelial lesion) on Pap smear of cervix (Acute) Had Conization 07/22. Needs pap q 6 months x 2 years. Next 01/21 Dizziness (Acute) Chronic headache (Acute) Comes and goes Insomnia (Acute) Medical History Contraception, generic surveillance (06/14/15) COVID-19 05/16/21 Smoker (05/04/17) 1/2 ppd Surgical History Hx of wisdom tooth extraction Family History Mother Hypertension Maternal Grandmother Diabetes Breast cancer Social History Smoking/Tobacco Use Status: Former Tobacco Use tobacco type: cigarettes Quit Date: 03/30/20 Second Hand Exposure: Yes Smoking risk assessment performed?: Yes Alcohol Intake: never Drug use: Never Substance use type: does not use Caregiver/Support person: No Household members: spouse and children Housing: apartment Communication Needs: None Do you need help understanding health information?: Never Pets and animals: Yes Pets and animals: cat(s) Sexually active: Yes Do you think of yourself as: straight/heterosexual Current gender identity: female What is your relationship status?: How often do you talk on the phone with friends or family?: twice per week How often do you get together with friends or relatives?: once per week Do you belong to any clubs or organized social groups?: no Panel score (0-1 are the most socially isolated patients): 2 What type of physical activity do you participate in: walking Duration: 15-30 minutes/day Frequency: 5-6 times per week Yoli/Congregation: No preference Special yoli needs: No Seatbelt use: always Helmet use: Yes Helmet use: always Drive intox or ride w/intox front loader residential driver: No Do you feel safe at home: Yes Do you feel safe in your relationship?: Yes Exam Const General: cooperative, comfortable and no acute distress Eyes Sclera: sclerae normal Resp Effort & Inspection: normal respiratory effort Auscultation: clear to auscultation bilaterally Cardio Rate: regular rate Rhythm: regular rhythm GI Inspection: normal to inspection Skin General skin exam: no rashes or lesions noted Neuro General: patient alert and patient oriented x3 Extrem General: normal to inspection Psych Appearance: grossly normal Mood: dysthymic mood Thought Content: suicidality Course Vital Signs Vital signs: Vital Signs Temperature 36.4 C L 03/26/22 08:43 Pulse 89 03/26/22 08:43 Respiratory Rate 18 03/26/22 08:43 Blood Pressure 155/85 H 03/26/22 08:43 Pulse Oximetry 99 03/26/22 08:43 Temperature 36.4 C L 03/26/22 08:43 Temperature Source Tympanic 03/26/22 08:43 Pulse 89 03/26/22 08:43 Respiratory Rate 18 03/26/22 08:43 Respiratory Effort 03/26/22 08:48 Respiratory Depth Normal 03/26/22 08:48 Respiratory Pattern Normal 03/26/22 08:48 Blood Pressure 155/85 H 03/26/22 08:43 Blood Pressure Position Supine 03/26/22 08:43 Pulse Oximetry 99 03/26/22 08:43 Oxygen Delivery Method Room Air 03/26/22 08:43 Oxygen Flow Rate 0 03/26/22 08:43 Pain Level 0 03/26/22 08:43
[2022-03-26] MEDS: Ibuprofen 600 MG TAB PO (09:20)
[2022-03-26] MEDS: Ondansetron O.D.T. 4 MG TABEF PO (09:20)
[2022-03-26 09:24] LABS: Bilirubin Negative (Negative); Blood Negative (Negative); Clarity Sl Cloudy (Clear); Glucose Negative (Negative); Ketones Negative (Negative); Leukocyte Esterase Negative (Negative); Nitrite Negative (Negative); Urobilinogen 0.2 EU/dL (Up TO 0.2)
[2022-03-26 09:46] LABS: TSH (W/Ref FT4) 3.52 uIU/mL (0.36-3.74)
== END 2022-03-26 09:48 | disposition home or self-care (01) ==
PROVIDERS: Emergency Provider Physician Assistant; PCP Nurse Practitioner Family
DX: R11.2 Nausea with vomiting, unspecified (principal); R53.81 Other malaise
CPT/HCPCS: 81025; 99283; 81003; 84443

== ENCOUNTER 2022-03-30 01:13 | Outpatient (CLI) | payer OTHER, SELFPAY ==
--- NOTE | 2022-03-30 06:30 | DI.MRI_ITS ---
Exam(s) MR ANGIO BRAIN WO EXAM: MR ANGIO BRAIN WO CLINICAL HISTORY: right sided pulsatile tinnitus,h93.a1 TECHNIQUE: MR a of the brain was performed on 1.5 genny unit with [id number] sequence. COMPARISON: No exams were available for comparison FINDINGS: ANTERIOR CIRCULATION: Both internal carotid arteries are patent in the skull base-carotid canals and exhibit normal luminal diameters at these levels. The intracavernous internal carotid arteries are also patent as are the supraclinoid aspects. Both A1 segments are patent as are the anterior cerebral arteries and there is no aneurysm at the level of the anterior communicating artery Both middle cerebral arteries are patent without significant stenosis nor intraluminal defects. No a neurysms of these vessels evident.. POSTERIOR CIRCULATION: Both vertebral arteries are patent at the skull base and contribute to the formation of the midline b asilar artery. The basilar artery ascends with normal luminal diameter. Distally it gives off patent bilateral supe rior cerebellar arteries and above this level terminates as patent bilateral posterior cerebral arter ies. There are thin posterior communicating arteries on both sides of the shfhtn-bl-Frndum. There i s no aneurysm at these levels nor at the tip of the basilar artery. Axial T2 and FLAIR sequences through the brain reveal no abnormal intra-axial signal. Ventricles are not enlarged or shifted. Visualized paranasal sinuses are clear as are the mastoid air cells. IMPRESSION: 1. Patent intracranial arteries. No evidence of significant stenosis. No aneurysms evident. 2. No abnormal intra-axial signal in the brain on the submitted FLAIR and T2 axial sequences. DATA REPOSITORY:
== END 2022-03-30 01:33 ==
LOC: DI 01:13
PROVIDERS: PCP Nurse Practitioner Family; Visit Provider Registered Nurse Maternal Newborn
DX: H93.A1 Pulsatile tinnitus, right ear (principal)
CPT/HCPCS: 70544

== ENCOUNTER 2022-08-03 00:41 | Outpatient (CLI) | payer OTHER, SELFPAY ==
--- NOTE | 2022-08-03 06:45 | DI.MRI_ITS ---
Exam(s) MR BRAIN WO EXAM: MR BRAIN WO CLINICAL HISTORY: probable IIH, ? CHIARI,POSTIONAL HEADACHE,PAPILLEDEMA,R51.0,H47.10 TECHNIQUE: Multiplanar multisequence MRI of the brain was performed. COMPARISON: No exams were available for comparison FINDINGS: VENTRICLES AND EXTRA AXIAL SPACES: Normal in size and morphology for the patient's age. MIDLINE SHIFT: None. CEREBRAL PARENCHYMA: No focus of restricted diffusion to suggest acute infarct. No space-occupying le lo identified. HEMORRHAGE: None. BRAINSTEM/CEREBELLUM: Normal. CALVARIUM: Normal. VISUALIZED PARANASAL SINUSES/MASTOIDS:Clear. [place]: Normal flow void. P[place]: There is a partially empty sella. OTHER FINDINGS: None. IMPRESSION: 1. Unremarkable MRI of the brain. 2. There is a partially empty sella. DATA REPOSITORY:
== END 2022-08-03 01:01 ==
LOC: DI 00:41
PROVIDERS: PCP Nurse Practitioner Family; Visit Provider Nurse Practitioner Adult Health
DX: H47.10 Unspecified papilledema (principal); R51.0 Headache with orthostatic component, not elsewhere classified
CPT/HCPCS: 70551

== ENCOUNTER 2022-11-29 13:52 | Outpatient (REF) | payer OTHER, SELFPAY ==
--- NOTE | 2022-11-29 13:30 | PAPFT_PTH ---
PATIENT: Jana Grant LOC: [facility] U#:[id number] AGE/SX: 27/F ROOM: RE11/29/[address]: Annalisa Hamilton DO : 1995 BED: DIS: 11/29/2022 SPEC #: [id number] RECD: 11/29/22 18:27 STATUS: JARVIS REQ #: [id number] WALLACE: 11/29/22 13:[address]: Annalisa Hamilton DEPT: [facility] Cytology RECD BY: Kim Malone ENTERED: 11/29/22 18:28 SP TYPE: PAPFT LIBRADO DR: Juan Pablo Loo, LATISHA Tissues: 1 - CX/ENDOCX FOR PAP SMEARS Procedures: PAP THIN PREP/[facility] Screening HPV DNA PROBE Comments: [id number]
== END 2022-11-29 13:53 | disposition home or self-care (01) ==
LOC: LBN 13:52
PROVIDERS: PCP Nurse Practitioner Family; Visit Provider Obstetrics & Gynecology
DX: Z12.4 Encounter for screening for malignant neoplasm of cervix (principal); Z11.51 Encounter for screening for human papillomavirus (HPV); Z87.410 Personal history of cervical dysplasia
CPT/HCPCS: 88142; 87624

== ENCOUNTER 2023-06-18 09:41 | Outpatient (REF) | payer OTHER, SELFPAY ==
--- NOTE | 2023-06-18 09:00 | PAPFT_PTH ---
PATIENT: Jana Grant LOC: [facility] #:[id number] AGE/SX: 28/F ROOM: RE06/18/[address]: Annalisa Hamilton DO : 1995 BED: DIS: 06/18/2023 SPEC #: [id number] RECD: 06/18/23 13:01 STATUS: JARVIS REErickson #: [id number] WALLACE: 06/18/23 09:[address]: Annalisa Hamilton DEPT: [facility] Cytology RECD BY: Kim Malone ENTERED: 06/18/23 13:01 SP TYPE: PAPFT OTHR DR: Juan Pablo Loo, LATISHA Tissues: 1 - CX/ENDOCX FOR PAP SMEARS Procedures: PAP THIN PREP/[facility] Screening HPV DNA PROBE Comments: [id number]
== END 2023-06-18 09:42 | disposition home or self-care (01) ==
LOC: LBN 09:41
PROVIDERS: PCP Nurse Practitioner Family; Visit Provider Obstetrics & Gynecology
DX: Z12.4 Encounter for screening for malignant neoplasm of cervix (principal); Z11.51 Encounter for screening for human papillomavirus (HPV)
CPT/HCPCS: 88142; 87624

== ENCOUNTER 2024-01-11 13:35 | Outpatient (REF) | payer OTHER, SELFPAY ==
[2024-01-11 13:07] LABS: Abs Immature Grans 0.04 10^3/uL (0.0-0.06); Absolute Basophil Count 0.04 10^3/uL (0.0-0.2); Absolute Eosinophil Count 0.35 10^3/uL (0.0-0.7); Absolute Monocyte Count 0.53 10^3/uL (0.1-0.8); Absolute Neutrophil Count 4.77 10^3/uL (1.2-6.7); Basophils % 0.5 %; Eosinophils % 4.8 %; HCT 42.7 % (36.0-46.0); HGB 13.9 g/dL (11.2-15.7); Immature Grans % 0.5 %; Lymphocytes % 21.8 %; MCH 27.5 pg (27.0-33.0); MCHC 32.6 % (32.0-36.0); MCV 85 fL (80-95); MPV 11.8 fL (8.0-11.0); Monocytes % 7.2 %; Neutrophils % 65.2 %; Platelet Count 288 10^3/uL (130-400); RBC 5.05 10^6/uL (3.93-5.22); RDW 13.6 % (11.7-14.6); RDW-SD 41.6 fL; WBC 7.33 10^3/uL (4.4-10.8)
[2024-01-11 13:21] LABS: ALT 22 U/L (14-59); AST 11 U/L (15-37); Albumin 4.2 g/dL (3.4-5.0); Alkaline Phosphatase 79 U/L (46-116); Anion Gap 13.8 mmol/L (3-11); BUN 8 mg/dL (7-18); Bilirubin, Total 0.42 mg/dL (0.2-1.0); CO2 21.2 mmol/L (21.0-32.0); CREATININE 0.9 mg/dL (0.55-1.02); Calcium 9.4 mg/dL (8.5-10.1); Calculated LDL 142 mg/dL (<100); Chloride 109 mmol/L (98-107); Cholesterol 205 mg/dL (<200); Glucose 89 mg/dL (74-106); HDL Cholesterol 45 mg/dL (40-60); Sodium 144 mmol/L (136-145); Total Protein 8.1 g/dL (6.4-8.2); Triglyceride 93 mg/dL (<150)
[2024-01-11 13:35] LABS: Hemoglobin A1C 5.2 % (<5.7)
== END 2024-01-11 13:36 | disposition home or self-care (01) ==
LOC: LBN 13:35
PROVIDERS: PCP Nurse Practitioner Family; Visit Provider Nurse Practitioner Family
DX: R10.9 Unspecified abdominal pain (principal); Z00.00 Encounter for general adult medical examination without abnormal findings
CPT/HCPCS: 80053; 80061; 83036; 85025

== ENCOUNTER 2024-07-16 08:45 | Outpatient (REF) | payer OTHER, SELFPAY ==
--- NOTE | 2024-07-16 08:30 | PAPFT_PTH ---
PATIENT: Jana Grant LOC: [facility] U#:[id number] AGE/SX: 29/F ROOM: RE07/16/[address]: Annalisa Hamilton DO : 1995 BED: DIS: 07/16/2024 SPEC #: [id number] RECD: 07/16/24 12:58 STATUS: JARVIS REQ #: [id number] WALLACE: 07/16/24 08:[address]: Annalisa Hamilton DEPT: [facility] Cytology RECD BY: Kim Malone ENTERED: 07/16/24 12:58 SP TYPE: PAPFT OTHR DR: Juan Pablo Loo, LATISHA Tissues: 1 - CX/ENDOCX FOR PAP SMEARS Procedures: PAP THIN PREP/[facility] Screening HPV DNA PROBE Comments: [id number] (HPV 16 & 18/45)
== END 2024-07-16 08:46 | disposition home or self-care (01) ==
LOC: LBN 08:45
PROVIDERS: PCP Nurse Practitioner Family; Visit Provider Obstetrics & Gynecology
DX: Z12.4 Encounter for screening for malignant neoplasm of cervix (principal)
CPT/HCPCS: 88142; 87624